=== PATIENT | female | born 1995 ===

== ENCOUNTER 2019-12-20 13:29 | Observation (INO) | payer OTHER, SELFPAY ==
[2019-12-20 16:08] LABS: Mean Corpuscular HGB CONC 34.5 g/dL (32.0-36.0); Mean Corpuscular Hemoglobin 28.5 pg (27.0-31.0); Mean Corpuscular Volume 82.5 fL (78.0-98.0); Mean Platelet Volume 8.7 fL (7.4-10.4); Platelet Count 178 thou/uL (130-400); RBC Distribution Width 12.5 % (11.5-14.5); Red Blood Cell (RBC) Count 4.91 mill/uL (4.20-5.40); White Blood Cell (WBC) Count 10.5 thou/uL (4.8-10.8)
[2019-12-20 16:24] LABS: Band 18 % (5-11); Lymphocytes 29 % (21-51); MDiff Complete? YES; Monocytes 5 % (0-10); Neutrophil 44 % (42-75); Platelet Morphology Comment Appears Adequate; RBC Morphology Normal; Reactive Lymphocytes 4 % (0-10)
[2019-12-20 16:39] LABS: ALT (SGPT) 306 U/L (8-55); AST (SGOT) 265 U/L (5-34); Albumin 3.8 g/dL (3.5-5.0); Alkaline Phosphatase 181 U/L (40-110); Anion Gap 11 mmol/L (10-20); BUN (Urea Nitrogen) 8 mg/dL (7.0-18.7); Bilirubin, Total 1.1 mg/dL (0.2-1.2); Calc. Creatinine Clearance 0 mL/min (70-130); Calcium 8.9 mg/dL (7.8-10.44); Carbon Dioxide 24 mmol/L (22-29); Chloride 100 mmol/L (98-107); Estimated GFR-MDRD Greater than 90; Globulin 3.5 g/dL (2.4-3.5); Glucose 91 mg/dL (70-105); Lipase 38 U/L (8-78); Potassium 3.5 mmol/L (3.5-5.1); Protein, Total 7.3 g/dL (6.0-8.3); Sodium 131 mmol/L (136-145)
--- NOTE | 2019-12-20 17:15 | RAD ---
EXAM: CHEST ONE VIEW HISTORY: Fever for last 9-10 days. COMPARISON: None FINDINGS: The cardiac silhouette and pulmonary vasculature is within normal limits. The lungs are clear. The os seous structures are intact. IMPRESSION: No acute cardiopulmonary process.
[2019-12-20 17:23] LABS: Pregnancy Test - Urine (BHCG) Negative (Negative); Pregu Control Background? CLEAR/WHITE (CLR/WHITE); Pregu Control Bar Appear? YES (CONTROL BAR); Specific Gravity 1.017 (1.002-1.036)
[2019-12-20 17:28] LABS: Bilirubin Negative (Negative); Blood, Urine Trace (Negative); Clarity Turbid (Clear); Glucose, Urine (Dipstick) Normal (Negative); Leukocyte 500 Leu/uL (Negative); Mucous/LPF Rare LPF (<2+); Nitrite Negative (Negative); Protein, Urine (Dipstick) 30 mg/dL (Neg-Trace); RBC/HPF 0-3 HPF (0-3); Urobilinogen 3 mg/dL (Less than 2)
[2019-12-20 17:41] LABS: Bacteria/HPF Rare-Few HPF (None Seen)
--- NOTE | 2019-12-20 18:09 | ULT ---
RIGHT UPPER QUADRANT ULTRASOUND CLINICAL HISTORY: Right upper quadrant pain. COMPARISON: None FINDINGS: Liver:Normal echotexture without focal mass. Intrahepatic bile ducts: No intrahepatic or extrahepatic biliary dilation.; Common bile duct: 3.1 mm. Gallbladder: Normal appearing. Barros's sign:None Main portal vein:Patent with hepatopedal flow. Pancreas:Visualized pancreas appears normal. Right kidney: Right kidney measures 11.4 x 4.3 x 5.8 cm. No focal renal lesion or hydronephrosis. Additional findings: None. IMPRESSION: Normal RUQ ultrasound.
[2019-12-20] MEDS ORDERED: Ibuprofen 200 MG TAB ONE ×2 (18:41→18:42)
[2019-12-20 19:33] LABS: Acetaminophen Less than 6.0 mcg/mL (10.0-30.0)
[2019-12-20 20:00] LABS: HBCM Index 0.13 S/CO (0-0.79); HBSAg Index 0.25 S/CO (0-0.99); Hep A IgM AB Non-Reactive (NonReactive); Hep A IgM S/CO 0.13 S/CO (0-0.79); Hep B Surf Ag Non-Reactive S/CO (NonReactive); Hep C IgG Ab Non-Reactive (NonReactive); Hepatitis B Core IgM Abs Non-Reactive (NonReactive)
[2019-12-20] MEDS ORDERED: cefOXitin Sodium/Dextrose,Iso 2 GM in Premix Bag 1 BAG IVPB SCH (21:00)
--- NOTE | 2019-12-20 21:37 | ULT ---
TRANSABDOMINAL TRANSVAGINAL PELVIC ULTRASOUND DATE:: 12/20/2019 8:40 PM CLINICAL HISTORY: Pelvic tenderness with pelvic spotting and history of irritable bowel syndrome. COMPARISON: None. TECHNIQUE: Grayscale, color Doppler and spectral Doppler images were obtained of the pelvis see a tra nsabdominal transvaginal approach Uterus: Size: 8.4 x 3.9 x 4.8 cm Mass: None Cervix: Within normal limits Endometrium: Normal Endometrial Thickness: 8.5 mm Ovaries: Size: right measures 2.8 x 1.8 x 2.3 cm; left measures 4.9 x 3.8 x 3.0 cm. The left ovary is partiall y obscured by overlying bowel gas. Mass: None. Flow: Normal Cul-de-sac: Mild free fluid IMPRESSION: No acute sonographic abnormality demonstrated. Slight asymmetry in size of the left and right ovary. The left ovary is mildly enlarged and partially obscured by overlying bowel gas, limiting detail. No definite left ovarian mass or torsion is demonstrated. Blood flow is demonstrated to both ovaries. There is nonspecific mild free fluid in the pelvis.
[2019-12-21] MEDS ORDERED: Acetaminophen 500 MG TAB PO PRN (00:17)
[2019-12-21] MEDS ORDERED: cefOXitin Sodium/Dextrose,Iso 2 GM in Premix Bag 1 BAG IVPB SCH (03:00)
[2019-12-21] MEDS ORDERED: cefOXitin 2 GM in Sodium Chloride 0.9% 100 ML IVPB SCH (03:00)
[2019-12-21] MEDS ORDERED: Ibuprofen 600 MG TAB ONE (03:16)
--- NOTE | 2019-12-21 03:59 | HP ---
CHIEF COMPLAINT: Fever and pelvic pain with a preliminary diagnosis of PID. HISTORY OF PRESENT ILLNESS: The patient is a 24-year-old G0, P0 female, who presented to the emergency room with a 9-day history of recurrent fevers, epigastric pain, cervical lymph node enlargement. During her evaluation, the patient was noted to have a recent negative flu test and negative Monospot test. Here in the emergency room, the patient was reported to have a clear chest x-ray. On physical exam, the ER physician reported cervical motion tenderness, purulent discharge, and very tender bimanual exam. Having a concern for PID and a fever of 103 on arrival, the patient was admitted with a presumptive diagnosis of PID and placed on doxycycline and cefoxitin. Upon arrival to the floor, the patient was seen and evaluated by myself. Again, she reiterated this recurrent fever that has been going on for at least a week now with the most recent temperature in the emergency room earlier today at 103. The patient reports that she has been taking Tylenol 3 times a day 1 g for fever control. She has had body aches, bony aches , and fatigue. She has had some epigastric pain in the recent days. Denies any pelvic pain or abdominal pain. She does report she had some spotting last week. She takes control pills on a continuous basis; levothyroxine, she takes 525 mcg weekly on Sundays. She also is on sertraline 50 mg a day and then Tylenol 1 g every 8 hours. The patient denies cough, nausea, vomiting, diarrhea, constipation, or sick contacts. She reports she is sexually active, but to me denied any pelvic pain or noticeable discharge. She just started a new pack of control pills that she reports she has been taking continuously since August. The patient denies any weight loss. She reports family history of thyroid cancer in her sister and liver cancer in a grandfather in his 80s. PAST MEDICAL HISTORY: Hypothyroidism, IBS, and depression. PAST SURGICAL HISTORY: Noncontributory. ALLERGIES: NO KNOWN DRUG ALLERGIES. MEDICATIONS: Again, 1. Levothyroxine 525 mcg a week. 2. Sertraline 50 mg daily. 3. Has been given a dose of doxycycline 100 mg IV and 2 g of cefoxitin in the emergency room. 4. Tylenol. NEW ACCOUNTS REPRESENTATIVE HISTORY: Denies history of gonorrhea, chlamydia, or other sexually transmitted infections. She has been sexually active with this partner for about 6 months. REVIEW OF SYSTEMS: Per HPI. PHYSICAL EXAMINATION: VITAL SIGNS: Blood pressure 119/79, temperature 98.2, respiratory rate 18, saturating 98% on room air, and pulse of 74. GENERAL: She appears to be in no acute distress. She is alert, oriented, cooperative, and pleasant to interact with. HEENT: Head is normocephalic and atraumatic. LUNGS: Clear to auscultation bilaterally. HEART: Has regular rate and rhythm. ABDOMEN: Soft. She has some epigastric tenderness to palpation. Negative Barros sign. She has no tenderness in adnexa and some mild tenderness to no tenderness on repeat exam to midline of her pelvis. EXTREMITIES: Nontender, nonedematous. : Vulva is without masses, lesions, or erythema. Vagina is moist with discharge that does not appear purulent to me. The cervix appears to be normal and nonerythematous. Mucous, once the vaginal discharge has cleared, appears to be clear. There is no cervical motion tenderness that could be appreciated on bimanual exam, no adnexal tenderness. She has some mild tenderness to palpation of her uterus midline, but not significant in nature. LYMPHATICS: The patient has no cervical lymphadenopathy. No inguinal lymphadenopathy. No supraclavicular or infraclavicular lymphadenopathy. No CVA tenderness. No vertebral tenderness. LABORATORY DATA: Blood cultures pending due to temperature of 103 on arrival. LFTs are significantly elevated in the 200s. ALT and AST, exact number is not available at this time due to downtime of [facility]. Ultrasound did not show any adnexal masses and no abnormalities of the uterus, liver, spleen, or upper abdomen. Chest x-ray is clear. ASSESSMENT AND PLAN: The patient is a 24-year-old female, admitted to the floor by the ER physicians with presumptive diagnosis of pelvic inflammatory disease on evaluation by myself. The patient does not have any evidence to me suggestive of pelvic inflammatory disease. She does have some epigastric tenderness. The patient has this fever of unknown origin. I do not appreciate anything obvious on physical exam that would be pointing to the source of her infection. I will be discontinuing her antibiotics at this time. She does need to get on metronidazole for bacterial vaginosis, but I am withholding that at this time as well. The patient's LFTs may be attributed to her medication use and we will be holding off Tylenol until repeat lab work demonstrates downward trending of her LFTs. If that is not the case, we will be likely getting a medicine consult in the morning for further evaluation of the patient's condition. The patient overall is stable, does not have any signs of sepsis or severe infection. We will re-evaluate in the morning. Addendum: PT spiked temp again. I will be repeating flu swab. if neg will place pt on [employer] Job ID: [id number] MTDD
[2019-12-21] MEDS ORDERED: Ibuprofen 200 MG TAB PO SCH (04:30)
--- NOTE | 2019-12-21 06:11 | PDOC.EVN ---
Event Note - Event Note Event Note: flu test neg. starting emperic abx zosyn 3.375g q6hrs. getting medicine consult
[2019-12-21 06:21] LABS: Amphetamine Not Detected (NotDetected); Barbiturates Screen Not Detected (NotDetected); Benzodiazepine Screen Detected (NotDetected); Cocaine Metabolite Screen Not Detected (NotDetected); Medtox Control Line Valid? VALID (VALID); Medtox Reader # READER 4; Methadone Not Detected (NotDetected); Methamphetamine Not Detected (NotDetected); Opiate Screen Not Detected (NotDetected); Oxycodone Screen Not Detected (NotDetected); Phencyclidine (PCP) Not Detected (NotDetected); THC/Cannabinoid Screen Not Detected (NotDetected); Tricyclic Screen Not Detected (NotDetected)
[2019-12-21 07:18] LABS: ALT (SGPT) 174 U/L (8-55); AST (SGOT) 118 U/L (5-34); Albumin 2.9 g/dL (3.5-5.0); Alkaline Phosphatase 151 U/L (40-110); Bilirubin, Direct 0.5 mg/dL (0.1-0.3); Bilirubin, Total 0.9 mg/dL (0.2-1.2); Iron 14 ug/dL (50-170); Protein, Total 5.6 g/dL (6.0-8.3)
[2019-12-21 07:28] LABS: Anion Gap 12 mmol/L (10-20); BUN (Urea Nitrogen) 5 mg/dL (7.0-18.7); Calc. Creatinine Clearance 130 mL/min (70-130); Carbon Dioxide 19 mmol/L (22-29); Chloride 109 mmol/L (98-107); Estimated GFR-MDRD Greater than 90; Glucose 98 mg/dL (70-105); Potassium 3.3 mmol/L (3.5-5.1); Sodium 137 mmol/L (136-145)
[2019-12-21] MEDS ORDERED: Sodium Chloride 0.9% 10 ML ONE (07:40)
[2019-12-21] MEDS: Piperacillin/Tazobactam 3.375 GM in Sodium Chloride 0.9% 100 ML IVPB SCH ×4 (07:45→23:40)
[2019-12-21] MEDS ORDERED: FLU VACC QS2019-20(6MOS UP)/PF 60 MCG/0.5 ML SYRINGE IM ONE (09:00)
[2019-12-21] MEDS ORDERED: Doxycycline 100 MG in Syringe 0 ML IVPB SCH (10:00)
--- NOTE | 2019-12-21 10:52 | CON ---
DATE OF CONSULTATION: 12/21/2019 CONSULTATION: Medicine Service. CHIEF COMPLAINT: Fever for 9 days. HISTORY OF PRESENT ILLNESS: This is a 24-year-old female who last week began to feel warm, so got a thermometer and recorded a temperature of greater than 101 for 9 days at this point, which resolves with Tylenol. She notes that she has had some epigastric pain and some lymph node enlargement, pain, and sore throat on her left side. She has been worked up in the outpatient setting and has been tested multiple times with flu, which has been negative. Her monospot was negative. In the emergency department, she was evaluated for PID for reported abdominal pain. A pelvic exam was performed that was noted to have discharge. The patient was admitted to the hospital for PID under the [employer] service. Dr. Rosas then evaluated the patient. Pelvic exam did not appear to be suggestive of PID. Those antibiotics were discontinued. Flu was repeated and was negative. The patient continued to have fever. Zosyn was started for broad-spectrum antibiotics. At the point of my evaluation, the patient denied any symptoms besides the mild epigastric pain. Additionally, she denies any shortness of breath, cough, headache, sinus pain, nausea, vomiting, diarrhea, weaknesses in the upper and lower extremities, recent unexplained weight loss or gain, unusual rashes recent environmental with food exposures or known sick contacts. PAST MEDICAL HISTORY: Hypothyroid, IBS, depression. PAST SURGICAL HISTORY: Noncontributory. ALLERGIES: NO KNOWN DRUG ALLERGIES. CURRENT MEDICATIONS: 1. Levothyroxine 25 mcg once a week. 2. Sertraline 50 mg daily. 3. Zosyn. 4. Tylenol. REVIEW OF SYSTEMS: See HPI. PHYSICAL EXAMINATION: GENERAL: No acute distress. Alert, oriented, and cooperative. HEENT: NC/AT. LUNGS: CTAB. HEART: No significant murmurs. Regular rate and rhythm. ABDOMEN: Soft with epigastric tenderness. No CVA tenderness. EXTREMITIES: Nonedematous with pulses present. SKIN: Without lesion or rash. VITAL SIGNS: Closest to my examination are temperature of 98.4, blood pressure 110/73, pulse 92, respirations 20, oxygen saturation 97% on room air. LABORATORY DATA: The patient has a white blood cell count of 10.5. Potassium of 3.3. Lactic acid was 0.7. Direct bilirubin was 0.5. AST and ALT were elevated , but down trending to 118 and 174 respectively. Procalcitonin 0.19. ASSESSMENT AND PLAN: This is a 24-year-old female, who was initially admitted for pelvic inflammatory disease, which has been ruled out in which medical team was consulted for further evaluation of this fever without a source. The patient will be worked up for infectious and noninfectious causes including, but not limited to blood-borne infections such as HIV, malignancies and other infectious causes. I would continue current broad-spectrum antibiotics, however, it does not appear to be a bacterial infection at this time. We will discontinue when further results are back. Thank you for this consultation. We will follow along. Please call with any questions. Job ID: [id number] MTDD
[2019-12-21] MEDS ORDERED: Potassium Chloride 20 MEQ TAB PO SCH (13:00)
[2019-12-21] MEDS: Ibuprofen 800 MG TAB PO PRN (13:02)
[2019-12-21 14:23] LABS: HIV (1/2) Antibody/Antigen Non-Reactive (NonReactive); HIV 1/2 INDEX 0.15 S/CO (<1.00); Syphilis Antibody Nonreactive (Nonreactive); Syphilis Antibody Index 0.05 S/CO (<1.00 Non-Reactive)
--- NOTE | 2019-12-21 16:17 | PDOC.EVN ---
Event Note - Event Note Event Note: see Resident Dr Diaz HX & PE for further details: 24 yo nulliparous female student with 9 days fever chills seen at [facility] clinic with cervical adenopathy and sore throat, epigastric pain and nonproductive cough was negative for flu , strep and negative monospot as well. Patient with continued fever and chill notable vaginal d/c and was seen at ER with negative HCG, positive BV on VP3, GC/gonorrhea results not found. Patient admitted with working DX of PID and given doxycycline 100mg IV and cefoxitin 2 grams in ER. RUQ and pelvic US not remarkable PMHX hypothyroidism,depression anxiety and Irritable bowel syndrome ?( const/ diarrhea predominant) allergies NKDA she denies alcohol or illicit drug use Current RX [facility], SSRI ,thyroid replacement and tylenol for fever spikes last 9 days. Patient denies arthralgias some myalgia and epigatric pain no N/V/D no rashes. lab with elevated transaminases c/w hepatitis and admitting Physician did not feel PID as viable source of fever negative viral hepatitis panel for AB&C WBC 10,000 with bandemia exam alert responsive female NAD HEENT sclera clear non-icteric shoddy cervical adenopathy pharynx injected without exudates No axillary adenopathy lungs CTA Heart NSR no M/G Abdomen RUQ tenderness no rebound no guarding no splinting with inspiration or cough appreciate no HSM extremities no C/C/E no rashes or arthralgias skin negative A/P febrile illness with elevated LFT's patient has been empirically started on Zosyn and Blood cultures obtained, BV positive treatment pending consider other viral etiologies,consider occult malignancy although less likely rec Axel Dailey panel verse monospot, CMV,HIV and lymes titer studies continue to hydrate consider kirit donald-ihsan if indeed the patient had PID f/u on results Chlamydia and Gonorrhea results elevated LFTs would not be necessarily indicative of [facility]HC . Would check PT/PTT,INR ,lipase, GGT, iron level, celiac panel, albumin and other synthetic liver function test If patient continue to spike fever without clear source will need to consider CT abdomen/pelvis and ID consultation. Appreciate this interesting consult.
[2019-12-22] MEDS: Ibuprofen 800 MG TAB PO PRN (03:49)
[2019-12-22] MEDS: Piperacillin/Tazobactam 3.375 GM in Sodium Chloride 0.9% 100 ML IVPB SCH (05:47)
[2019-12-22 07:54] LABS: #Basophils 0.1 thou/uL (0.0-0.2); #Lymphocytes 3.3 thou/uL (1.20-3.40); #Monocytes 0.8 thou/uL (0.11-0.59); #Neutrophils 4.1 thou/uL (1.40-6.50); %Basophils 0.9 % (0.0-1.0); %Eosinophils 0.4 % (0.0-10.0); %Lymphocytes 39.8 % (21.0-51.0); %Monocytes 9.5 % (0.0-10.0); %Neutrophils 49.4 % (42.0-75.0); Hemoglobin 10.5 g/dL (12.0-16.0); Mean Corpuscular HGB CONC 36.3 g/dL (32.0-36.0); Mean Corpuscular Volume 82.8 fL (78.0-98.0); Mean Platelet Volume 8.5 fL (7.4-10.4); Platelet Count 176 thou/uL (130-400); RBC Distribution Width 12.6 % (11.5-14.5); White Blood Cell (WBC) Count 8.4 thou/uL (4.8-10.8)
--- NOTE | 2019-12-22 07:55 | PDOC.FM ---
- Subjective Subjective: pt resting comfortably in bed, reports continued fever, exposure to cats frequently - Objective Vital Signs & Weight: Vital Signs (12 hours) Temp Pulse Resp BP Pulse Ox 12/22/19 05:47 98.4 F 12/22/19 04:37 100.7 F H 12/22/19 03:49 100.4 F H 99 16 128/75 98 12/21/19 23:40 98.8 F 84 18 117/79 98 Weight Weight 58.06 kg I&O: 12/21/19 12/22/19 12/23/19 06:59 06:59 06:59 Intake Total 480 2260 Balance 480 2260 Result Diagrams: 12/22/19 07:37 12/22/19 07:37 Phys Exam - Physical Examination Constitutional: NAD HEENT: moist MMs L tender lymphadenopathy Respiratory: clear to auscultation bilateral Cardiovascular: RRR, no significant murmur Gastrointestinal: non-tender Musculoskeletal: pulses present Neurological: moves all 4 limbs tender lymphadenopathy Psychiatric: normal affect Skin: no rash Dx/Plan (1) Fever Code(s): R50.9 - FEVER, UNSPECIFIED Status: Acute (2) Lymphadenopathy Code(s): R59.1 - GENERALIZED ENLARGED LYMPH NODES Status: Acute (3) Transaminitis Code(s): R74.0 - NONSPEC ELEV OF LEVELS OF TRANSAMNS & LACTIC ACID DEHYDRGNSE Status: Acute - Plan Plan: fever without a source - preliminary work up underway, negative so far - consider SPEP, CT chest/abd - consider cat scratch disease- begin azithro/rifampin - dc zosyn, invasive bacterial infection unlikely transaminitis - unlikely related to tylenol ingestion - consider possible source of fever, vs visceral manifestation of CSD dispo: continue further eval. stable for dc with fu of results in clinic Addendum - Attending - Attending Attestation Date/Time: 12/22/19 1841 I personally evaluated the patient and discussed the management with Dr. Diaz I agree with the History, Examination, Assessment and Plan documented above with any addition or exceptions noted below. Patient appears clinically stable after imaging today patient stable for dismissal on empirical treatment for cat scratch disease. She will be f/u in one week to review all studies or sooner prn.
--- NOTE | 2019-12-22 07:56 | PDOC.BPN ---
- Brief Progress Note S: Patient reports feeling better for a few hours yesterday but is overall not any better. Concerned about missing her oral contraceptive pills. O: Vital Signs - Most Recent Temp Pulse Resp BP Pulse Ox 98.4 F 99 16 128/75 98 12/22/19 05:47 12/22/19 03:49 12/22/19 03:49 12/22/19 03:49 12/22/19 03:49 Gen - AAO, NAD Chest - nonlabored Abd - soft, mildly tender to palpation of upper abdomen. No guarding or rebound. A/P: 24 y/o female with fever of unknown origin. Originally admitted for PID but clinical picture not consistent. Family medicine consulted for further evaluation/workup and management with multiple tests pending. We will continue to follow.
[2019-12-22 08:12] LABS: ALT (SGPT) 122 U/L (8-55); AST (SGOT) 66 U/L (5-34); Albumin 2.9 g/dL (3.5-5.0); Alkaline Phosphatase 138 U/L (40-110); Anion Gap 12 mmol/L (10-20); BUN (Urea Nitrogen) 6 mg/dL (7.0-18.7); Bilirubin, Total 0.8 mg/dL (0.2-1.2); CK (CPK) 35 U/L (29-168); CRP (Inflammatory) 9.89 mg/dL (= or < 0.5); Calc. Creatinine Clearance 133 mL/min (70-130); Calcium 8.2 mg/dL (7.8-10.44); Carbon Dioxide 18 mmol/L (22-29); Chloride 112 mmol/L (98-107); Estimated GFR-MDRD Greater than 90; Globulin 2.9 g/dL (2.4-3.5); Glucose 84 mg/dL (70-105); Potassium 3.7 mmol/L (3.5-5.1); Protein, Total 5.8 g/dL (6.0-8.3); Sodium 138 mmol/L (136-145)
[2019-12-22] MEDS ORDERED: Rifampin 300 MG CAP PO SCH (10:00)
[2019-12-22 11:35] VITALS: BP 117/85; TEMP 97.7
--- NOTE | 2019-12-22 13:43 | CT ---
EXAM: CT of the chest with contrast CT of the abdomen and pelvis with contrast HISTORY: Fever of unknown origin COMPARISON: None TECHNIQUE: 1. Multiple contiguous axial images were obtained in a CT the chest with contrast. Coronal and sagitt al reformats were performed. 2. Multiple contiguous axial images were obtained and a CT of the abdomen and pelvis with contrast. O ral contrast was administered. Coronal and sagittal reformats were performed. FINDINGS: CT CHEST: HEART: Normal in size without focal cardiac abnormality MEDIASTINUM: No hilar or mediastinal lymphadenopathy. LUNGS: No focal infiltrates, nodules, or masses. PLEURAL SPACE: No pneumothorax or pleural effusion. CHEST WALL SOFT TISSUES: Unremarkable CT ABDOMEN/PELVIS: ABDOMEN: LIVER: within normal limits. BILE DUCTS: Normal caliber. GALLBLADDER: No calcified gallstones. Normal caliber wall. PANCREAS: within normal limits. SPLEEN: within normal limits. ADRENALS: within normal limits. KIDNEYS: within normal limits. PELVIS: REPRODUCTIVE ORGANS: No pelvic masses. URETERS: within normal limits. BLADDER: within normal limits. PERITONEUM: A small amount of free fluid in the pelvis is likely physiologic. No free air. BOWEL: Normal caliber. MESENTERY AND RETROPERITONEUM: No enlarged mesenteric or retroperitoneal lymph nodes. VESSELS: Normal. ABDOMINAL WALL: within normal limits. OSSEOUS STRUCTURES: No acute abnormality. IMPRESSION: No significant acute abnormality within the chest, abdomen, or pelvis.
--- NOTE | 2019-12-22 17:05 | DIS ---
DATE OF ADMISSION: 12/21/2019 DATE OF DISCHARGE: 12/22/2019 ADMITTING DIAGNOSIS: Pelvic inflammatory disease. DISCHARGE DIAGNOSIS: Fever of unknown origin. CONSULTATIONS: Family Medicine. PROCEDURES: CAT scan. HOSPITAL COURSE: The patient is a 24-year-old female, who presented to the emergency room with recurrent fever x1 week. Had been seen multiple times out patient with flu, mono testing neg. The patient was sent to the emergency room by the [facility] for evaluation. In her initial evaluation by the emergency room, she was diagnosed with presumptive PID and transferred to the floor for IV antibiotics, on cefoxitin and doxycycline. However, on arrival, the patient was re-evaluated by myself and did not believe that the patient was experiencing PID, but rather had fever from some unknown source. The patient's medications were changed over to Zosyn after initially discontinuing her antibiotics and Family Medicine was consulted for evaluation. Initial workup demonstrated LFTs in the 200s and 300s when first coming to the floor. They seemed to spontaneously resolve with discontinuation of Tylenol and other home medications to 66 and 122 at the time of discharge. TSH was within normal limits. Lipase and procalcitonin also within normal limits. Hepatitis panel was negative. RPR and HIV are both nonreactive. Today is hospital day #2. The patient's fever trend seems to be improving some as her T-max was a 100.7 early this morning and previous down from a 102.9, which she was receiving for rather consistently since admission. Today is hospital day 2. The patient is overall feeling well, has an appetite, is not requiring any other supportive medications. Recommendations this morning after a careful history by the family medicine team was to place the patient empirically on azithromycin and rifampin for possible cat-scratch disease with visceral involvement. She has blood cultures pending. She has GC/chlamydia pending and SHIVA pending, CMV pending, Axel-Dailey virus pending, Lyme disease pending, QuantiFERON, rheumatoid factor , serum electrophoresis all pending results. With the blessing of the consulting team, the patient is being discharged home today in stable condition. She has instructions to take her medications as prescribed and has an appointment to follow up with the family medicine team in 1 week to discuss and review these results. Today, CT scan of the abdomen and pelvis were also performed, negative for any lymphadenopathy or any other findings of concern. MEDICATIONS: Again include; 1. Azithromycin 250 mg daily for 10 days. 2. Rifampin 300 mg twice a day for the next 10 days. Thank you for the help of the family medicine team. Job ID: [id number] [facility]
[2019-12-23] MEDS ORDERED: Azithromycin 250 MG TAB PO SCH (09:00)
[2019-12-23 11:10] LABS: Lyme IgG/IgM AB <0.91 ISR (0.00-0.90)
[2019-12-23 19:08] LABS: CMV DNA-PCR Test Negative (Negative)
[2019-12-24 14:10] LABS: A/G Ratio 0.8 (0.7-1.7); Albumin 2.8 g/dL (2.9-4.4); Alpha 1 0.6 g/dL (0.0-0.4); Alpha 2 0.9 g/dL (0.4-1.0); Beta 1.1 g/dL (0.7-1.3); Gamma 0.9 g/dL (0.4-1.8); Globulin, Total 3.5 g/dL (2.2-3.9); M-Spike Not Observed g/dL (Not Observed); Protein Electrophoresis Intrp Note: (.)
[2019-12-24 16:51] LABS: ANA Symphony (Qualitative) Negative (Negative); ANA Symphony (Quantitative) 0.2 Ratio (< 0.7 Negative); EliA RAS New Method **** NEW METHOD ****; dsDNA IgG Antibody 0.8 IU/mL (<10 Negative)
[2019-12-25 23:07] LABS: QuantiFERON-TB Gold Plus Negative (Negative)
[2019-12-28 00:14] LABS: Chlamydia by PCR Not Detected (NotDetected); GC by PCR Not Detected (NotDetected)
== END 2019-12-22 15:56 | disposition home or self-care (01) ==
LOC: ERS 13:29 → 3SE 12-21 00:23
PROVIDERS: ADMIT Obstetrics & Gynecology; ATTEND Obstetrics & Gynecology
DX: R50.9 Fever, unspecified (principal); E03.9 Hypothyroidism, unspecified; K58.9 Irritable bowel syndrome, unspecified; F32.9 Major depressive disorder, single episode, unspecified; R10.13 Epigastric pain; F41.9 Anxiety disorder, unspecified; R79.89 Other specified abnormal findings of blood chemistry; R74.0 Nonspecific elevation of levels of transaminase and lactic acid dehydrogenase [LDH]; R59.1 Generalized enlarged lymph nodes; Z79.899 Other long term (current) drug therapy
CPT/HCPCS: 36415; 71045; 71260; 74177; 76705; 76856; 80048; 80053; 80074; 80076; 80306; 80307; 81003; 81015; 81025; 82550; 83520; 83540; 83605; 83615; 83690; 84145; 84165; 84443; 85025; 85652; 86038; 86140; 86225; 86480; 86618; 86780; 87040; 87389; 87480; 87491; 87497; 87510; 87591; 87633; 87660; 87798; 87804; 96361; 96365; 96366; 96367; G0378; J0694; J2543; J3490